=== PATIENT | female | born 1975 | race Caucasian/White ===

== ENCOUNTER 2017-05-20 10:45 | Inpatient (IN) | payer OTHER ==
[~2017-05-20] VITALS: Ht 152.4 cm; Wt 54.4 kg
[2017-05-20] MEDS ORDERED: SYNTHROID100 MCG PO (11:50)
[2017-05-30] MEDS ORDERED: OXYC1TAB9 PO (09:38)
[2017-05-30] MEDS ORDERED: COLACE100 MG PO (09:38)
[2017-05-30] MEDS ORDERED: KETO10TA2 PO (09:38)
== END 2017-05-30 09:55 | DRG 743 ==
LOC: OB/GYN 05-27 06:00 → O/R 05-27 06:00 → OB/GYN 05-27 10:15
PROVIDERS: Obstetrics & Gynecology
PROC: 0TJB8ZZ Inspection of Bladder, Via Natural or Artificial Opening Endoscopic (ICD-10-PCS; 2017-05-27)
PROC: 0UT90ZZ Resection of Uterus, Open Approach (ICD-10-PCS; principal; 2017-05-27 10:15)
PROC: 0UT70ZZ Resection of Bilateral Fallopian Tubes, Open Approach (ICD-10-PCS; 2017-05-27 10:15)
DX: D25.1 Intramural leiomyoma of uterus (principal); N92.0 Excessive and frequent menstruation with regular cycle; N94.5 Secondary dysmenorrhea; N81.11 Cystocele, midline